=== PATIENT | female | born 1970 | race Caucasian/White ===

== ENCOUNTER 2023-05-23 23:49 | Inpatient (IN) | payer BC, SELFPAY ==
[2023-05-23 18:14] VITALS: BP 133/93
[2023-05-23] MEDS: DILAUDID 0.5 MG IV ×2 (18:52→23:30)
[2023-05-23] MEDS: NSS 1000 IV ×2 (18:52→20:19)
[2023-05-23] MEDS: ZOFRAN 4 MG IV ×2 (18:52→20:16)
[2023-05-23 18:58] LABS: % Basophils 0.3 % (0-2); % Eosinophils 1.4 % (0-6); % Immature Granulocytes 0.4 % (0-0.5); % Lymphocytes 18.3 % (20.5-51.1); % Monocytes 6.5 % (1.7-9.3); % Neutrophils 73.1 % (42.2-75.2); Absolute Eosinophils 0.2 10^3/uL (0-0.7); Absolute Immature Granulocytes 0.1 10^3/uL (0-0.05); Absolute Lymphocytes 2.3 10^3/uL (1.2-3.4); Absolute Monocytes 0.8 10^3/uL (0.1-0.6); Absolute Neutrophils 9.2 10^3/uL (1.4-6.5); Hematocrit 36.2 % (37.0-47.0); Hemoglobin 12.9 g/dL (12.0-16.0); Mean Corp Hgb Conc. 35.6 g/dL (33.0-37.0); Mean Corpuscular Hgb 30.6 pg (27.0-31.0); Nucleated Red Blood Cells % 0 %; Platelet Count 299 10^3/uL (130-400); Red Blood Cell Count 4.21 10^6/uL (4.20-5.40); Red Cell Dist. Width 13.1 % (11.5-14.5); Urine Albumin Trace (Neg - Trace); Urine Bilirubin 1+ (Negative); Urine Character Clear (Clear); Urine Color Yellow; Urine Glucose Negative (Negative); Urine Ketone 1+ (Negative); Urine Leukocyte Trace (Negative); Urine Nitrite Negative (Negative); Urine Occult Blood 3+ (Negative); Urine Urobilinogen 1+ (Neg - 1+); White Blood Cell Count 12.6 10^3/uL (4.8-10.8)
[2023-05-23 19:16] LABS: ALT (SGPT) 16 U/L (0-35); AST (SGOT) 22 U/L (14-36); Albumin 4.4 g/dl (3.5-5.0); Alkaline Phosphatase 63 U/L (38-126); Blood Urea Nitrogen 18 mg/dl (7-17); Calcium 9.7 mg/dl (8.4-10.2); Carbon Dioxide 22 mmol/L (22-30); Chloride 107 mmol/L (98-107); Glucose 87 mg/dl (70-99); Potassium 3.9 mmol/L (3.5-5.1); Sodium 138 mmol/L (135-145); Total Bilirubin 0.6 mg/dl (0.2-1.3); eGFR > 60.00
[2023-05-23 19:21] LABS: Urine Bacteria Few (Negative); Urine Mucus Few
[2023-05-23 19:22] LABS: Urine White Cell 0-2 /HPF (0-5)
--- NOTE | 2023-05-23 19:50 | ED.GENMED ---
Addendum entered and electronically signed by Jimi Reyna DO 05/23/23 23:22:
Update prior to discharge patient with increasing pain, will require admission
Original Note:
History of Present Illness
General
Chief Complaint: Flank Pain
Source: patient, records, spouse and previous radiology exam
Exam Limitations: none
Time Seen by Provider: 05/23/23 18:31
Nursing documentation reviewed up to this point in time: agreed with
Travel History
Have you had any contact with someone who has COVID-19?: No
Do you have any symptoms of coronavirus? Fever > 100 degrees, chills, cough, shortness of breath, sore throat, loss of taste or smell, muscle aches, or headache?: No
History of Present Illness
History of Present Illness:
52-year-old female status post ectopic removal appendectomy 1 prior ureteral stent, few prior kidney stones, presents acute onset of left pelvic pain in the left flank with nausea no fever similar to prior kidney stone took 800 mg of
Motrin did have some urinary frequency possibly some blood, initially thought it could have been a a UTI
Past History
Past History
ED Past Medical History: Psychiatric and Other (Kidney stones)
ED Past Surgical History: Appendectomy, Gynecological and Urological
Social History
Tobacco: Non-smoker
Alcohol: Occasional
Drug: None
Personal:
Living: with family
Employment: Employed
Family History
Family History: Other (Noncontributory)
Review of Systems
Review of Systems
All Other Systems: Not applicable
Constitutional: Denies fever, fatigue or chills
EENT: Reports no symptoms
Respiratory: Reports no symptoms
Cardiac: Reports no symptoms
ABD/GI: Reports abdominal pain and nausea
: Reports urgency and bleeding
Musculoskeletal: Reports no symptoms
Skin: Reports no symptoms
Phy Exam
Physical Exam
Physical Exam:
Physical Exam
General: Nontoxic 52-year-old looks uncomfortable
Neck: No jaundice
Heart: Regular
Lungs: no acute respiratory distress.
Abdomen: Left lower abdominal left flank tenderness
Neuro: alert and oriented. no focal neurological deficits
Skin: no rash
Psychiatric: well kept. interactive and cooperative
Extremities: no edema.
Course
Orders/Labs/Results
Orders:
Orders
05/23/23 18:39
CT Abd/pel Without Iv Or Oral Urgent
Comment:
Reason For Exam: left flakno
0.9% Sodium Chloride 1000 ml [Nss] 1,000 ml IV BOLUS
HYDROmorphone [Dilaudid] 0.5 mg IV NOW STA
Ondansetron Injectable [Zofran] 4 mg IV NOW STA
05/23/23 18:50
Complete Blood Count/With Diff Urgent
Comprehensive Metabolic Panel Urgent
Urinalysis Reflex To Culture Urgent
Date Specimen was Collected: 05/23/23
Time Specimen was Collected: 18:42
Urine Microscopic Reflex Cult Urgent
05/23/23 20:13
0.9% Sodium Chloride 1000 ml [Nss] 1,000 ml IV BOLUS
HYDROmorphone [Dilaudid] 1 mg IV NOW STA
Ondansetron Injectable [Zofran] 4 mg IV NOW STA
05/23/23 21:37
Ketorolac [Toradol] 30 mg IV NOW STA
Oxycodone/Acetaminophen [Percocet 5/325] 1 tablet PO NOW STA
Abnormal Lab Results
05/23/23
18:50
WBC 12.6 H 10^3/uL
(4.8-10.8)
Hct 36.2 L %
(37.0-47.0)
Abs Immat Gran (auto) 0.1 H 10^3/uL
(0-0.05)
Absolute Neuts (auto) 9.2 H 10^3/uL
(1.4-6.5)
Absolute Monos (auto) 0.8 H 10^3/uL
(0.1-0.6)
Lymphocytes % 18.3 L %
(20.5-51.1)
BUN 18 H mg/dl
(7-17)
Urine Ketones 1+ A
(Negative)
Ur Occult Blood Reflex 3+ A
(Negative)
Urine Bilirubin 1+ A
(Negative)
Leukocyte Esterase Rfl Trace A
(Negative)
Urine RBC 7-10 A /HPF
(0-2)
Urine Bacteria (Reflex) Few A
(Negative)
05/23/23 18:50
05/23/23 18:50
Vital Signs
Initial and Last Documented VS:
Initial Vital Signs
Temp Pulse Resp BP Pulse Ox
98.2 F 115 20 133/93 97
05/23/23 18:14 05/23/23 18:14 05/23/23 18:14 05/23/23 18:14 05/23/23 18:14
Last Documented Vital Signs
Temp Pulse Resp BP Pulse Ox
98.2 F 84 18 110/70 98
05/23/23 20:44 05/23/23 20:44 05/23/23 20:44 05/23/23 20:44 05/23/23 20:44
MDM/Problems Addressed
Differential Diagnosis Includes:
Stone ovarian cyst UTI
MDM/Problems Addressed:
Left pelvic pain left leg
Chronic conditions affecting care:
Kidney stones
*Critical Care Note
Total Time (30-74mins, 75-104mins- exclusive of procedures): Not Applicable
Update Note
Update Note:
8:[address] report noted reviewed with patient and spouse, 4 mm distal stone on the left still having some pain will redose on narcotics, see if we get her pain under control consideration for trial of passage inpatient versus outpatient no fever
normal renal function no indication for urgent stenting
9:30 PM, patient feeling better will try some Toradol p.o. meds, appears to be a good candidate for trial of passage
ED Attending Note
-
Portions of this chart may have been created with voice recognition software.� Occasional wrong word or��sound alike� substitutions may have occurred due to the inherent limitations of voice recognition software.
Discharge Plan
Departure
Patient Disposition: Home (Routine Discharge)
Date of Disposition: 05/23/23
Time of Disposition: 21:38
Patient with high blood pressure during this ER visit?: No
Condition: Good
Discharge Problem:
Left ureteral stone
Instructions: Kidney Stones (DC)
Prescriptions:
No Action
lamotrigine [Lamictal] 150 MG tablet
150 mg PO BID
fluvoxamine 50 MG tablet
100 mg PO DAILY
desog-e.estradiol/e.estradiol [Pimtrea (28)] 1 EACH tablet
1 ea PO DAILY
rosuvastatin 5 MG tablet
5 mg PO QPM
semaglutide [Ozempic] 0.25 MG/0.2 ML pen injector
1 mg SQ WEEKLY
propranolol 60 MG capsule,extended release 24 hr
60 mg PO DAILY
hydrocodone-acetaminophen 1 TABLET tablet
1 - 2 tab PO Q4HPRN PRN (Reason: moderate to severe pain) Qty: 20 0RF
Referrals:
Mike Whitten DO [Family Provider] -
Interventions
Interventions:
*Risk Screen - Suicide Last Done: 05/23/23 18:43
*General Assessment Last Done: 05/23/23 18:14
*Neglect/Abuse Screening Last Done: 05/23/23 18:43
ED- Fall Risk Assessment Last Done: 05/23/23 21:06
*ED COVID-19 Vaccine History Last Done: 05/23/23 18:14
RH-Rsvnjw-Jnuljshzbz Assessment Last Done: 05/23/23 18:43
ED-Female Genitourinary Assessment Last Done: 05/23/23 18:43
Discharge Date and Time
Print Language: YI
[2023-05-23] MEDS: DILAUDID 1 MG IV (20:16)
[2023-05-23 20:44] VITALS: BP 110/70
[2023-05-23] MEDS: TORADOL 30 MG IV (21:46)
[2023-05-23] MEDS: PERCOCET 5/325 1 TABLET PO (21:46)
[2023-05-23 23:06] VITALS: BP 129/84
--- NOTE | 2023-05-23 23:29 | HPS.HSE ---
Family Physician
-
Family Physician: Mike Whitten
Chief Complaint
-
Left side abdominal and inguinal pain
History of Present Illness
52-year-old female with history of prior kidney stone, mood disorder chronic back pain, presented to the hospital after she had a sudden onset of the left inguinal areas pain and discomfort with suprapubic pain and pressure, she thought she may have
some UTI, while her was a physician told her you may have another kidney stone, but the pain progressively getting worse to the point was extremely severe unbearable, associated with nausea but no vomiting, denies any dysuria but admits to
increased urinary frequency and suprapubic pain and discomfort, no hematuria, denies any fever or chills or cough or congestion, no chest pain or any vaginal discharge. Workup in the ER concerning for left UVJ junction with mild ureteral dilation.
Given fluids, pain and nausea medication
Medical History
Past Medical History
Past Medical History: Reports Other
Additional Past Medical History:
Past medical history reviewed:
Chronic back pain status post back surgery
History of the kidney stones status post cystoscopy and stent placed
Dyslipidemia
Mood disorder
Surgical history:
Back surgery
Cystoscopy and stent placement
Social history: No smoking, alcohol or drug use.
Family history positive for kidney stone in his father as well as chronic back issues
Past Surgical History: Reports Other
Social History
Unable to obtain full social history at this time due to: Other
Family History
Family History: Other
Allergies / Home Medications
Allergies reflects when Allergies were last updated in [facility].
Home Medications with original date entered in [facility]
Allergy/Medication List:
Allergies
Allergy/AdvReac Type Severity Reaction Status Date / Time
Penicillins Allergy Unknown Swelling Verified 05/23/23 18:18
tramadol Allergy Unknown NAUSEA Verified 05/23/23 18:18
tramadol HCl [From Ultram] Allergy Unknown Nausea Verified 05/23/23 18:18
relafen Allergy Hives Uncoded 05/23/23 18:18
Home Medications
fluvoxamine 50 mg tablet 100 mg PO DAILY Depression 03/29/15
lamotrigine 150 mg tablet (Lamictal) 150 mg PO BID Seizures 03/29/15
desogestrel-e.estradiol 0.15 mg-0.02 mg(21)/e.estrad 0.01 mg(5) tablet (Pimtrea (28)) 1 ea PO DAILY Hormonal agent 09/04/18
rosuvastatin 5 mg tablet 5 mg PO QPM Hormonal agent 09/04/18
semaglutide 0.25 mg or 0.5 mg (2 mg/1.5 mL) subcutaneous pen injector (Ozempic) 1 mg SQ WEEKLY Diabetes 09/04/18
Review of Systems
-
A 12 point ROS was completed and negative except as noted: Yes
Physical Exam
Vital Signs
Vital Signs
Temp Pulse Resp BP Pulse Ox
98.2 F 76 17 129/84 98
05/23/23 20:44 05/23/23 23:06 05/23/23 23:06 05/23/23 23:06 05/23/23 23:06
Physical exam:
General: Awake, alert and oriented x3, not in distress and holds appropriate conversation.
HEENT: No active discharge, ecchymosis or bruising, moist lips, tongue and mucous membrane.
Eyes: No discharge or red conjunctiva, no nystagmus, pupils are reactive and equal
Neck:Supple, no JVD no bruit no goiter.
Respiratory: Normal AP contour and diameter, normal chest wall movement, normal respiratory effort, no respiratory distress,
Lungs: Good air entry bilaterally, no wheezing or rhonchi, no rales or crackles
Heart: S1, S2 regular, normal rate, no added sound.
Genitourinary Left-sided abdominal and flank pain and tenderness,
Gastrointestinal: Positive bowel sounds, soft, left-sided abdominal tenderness with no guarding or rigidity or organomegaly
Musculoskeletal: , no chest wall abnormality or tenderness. All joints and extremities have good range of motion, no muscle tenderness or any joint swelling or tenderness.
Extremities: No pitting edema, good peripheral pulses, good range of motion
Skin: Warm and dry, no ulceration, normal color.
Neurological: Awake, alert and oriented x3, no facial droop, moves extremities freely, speech clear and comprehensive
Psychiatric: Normal mood, normal thought and judgment, normal affect,
Physical Exam
General: Other
Laboratory Results
-
05/23/23 18:50
05/23/23 18:50
Laboratory Results
Total Bilirubin 0.6 mg/dl (0.2-1.3) 05/23/23 18:50
AST 22 U/L (14-36) 05/23/23 18:50
ALT 16 U/L (0-35) 05/23/23 18:50
Alkaline Phosphatase 63 U/L (38-126) 05/23/23 18:50
CT abdominal and pelvis:
1. 3.8 mm PARTIALLY OBSTRUCTING CALCULUS at the LEFT URETEROVESICAL JUNCTION causing mild distal left hydroureter. No CT evidence for left hydronephrosis.
2. No CT evidence for intrarenal calculi.
3. Mild diverticulosis in the sigmoid colon.
4. Severe discogenic degenerative disease at L3/L4, L4/L5, and L5/S1.
Data Reviewed
-
CT Scan: Image Personally Visualized and interpreted and Discussed with Patient
Lab Data: Labs Reviewed by me and Discussed with Patient
Old Records: Reviewed
Impression/Plan
-
IMPRESSION:
52-year-old female with prior history of ureteric stone, presented to the hospital with left-sided abdominal inguinal area pains with a workup showed left UVJ stone with mild hydroureter.
Renal colic
Left UVJ stone with hydroureter
Hydroureter
Urinary tract infection likely triggered by ureteric stone
Mood disorder
Dyslipidemia
PLAN:
N.p.o. except medication for now
IV fluid with normal saline 125 mill per hour
Start Flomax and first dose for now, see if she passes stone
Urology consult and defer further workup to urology
Pain and nausea medication with Dilaudid, Toradol and Zofran as needed
Continue lamotrigine as she takes for mood, flu vaccine main
Hold off semaglutide that she takes for weight management
Recheck lab
All discussed with the patient in detail expressed understanding
CODE STATUS full code
DVT prophylaxis SCD
[2023-05-23 23:33] VITALS: BMI 28.9
[2023-05-24] MEDS: FLOMAX 0.400000000000000022 MG PO ×2 (01:40→08:06)
[2023-05-24] MEDS: ZOFRAN 4 MG IV (01:40)
[2023-05-24 01:41] VITALS: BP 128/84; BMI 29.8
[2023-05-24] MEDS: NSS 1000 IV ×2 (01:41→09:25)
[2023-05-24] MEDS: ROCEPHIN 1000 MG IV (02:07)
[2023-05-24] MEDS: TYLENOL 650 MG PO (02:07)
[2023-05-24] MEDS: STERILE WATER FOR INJECTION 10 ML IV (02:07)
--- NOTE | 2023-05-24 03:01 | PTCARENOTE ---
Pt admitted to [facility] from ED, ambulated from stretcher to bed without difficulty. VSS. Medicated with Tylenol for 3/10 pain with effective result. Pt nauseous on arrival to floor, refer to [facility] for Zofran administration. Admission questions completed
as documented. Provided pt with strainer for urine, provided education and pt verbalizes understanding of use. Pt's belongings at bedside, oriented to room, call saavedra within reach.
[2023-05-24] MEDS: TORADOL 10 MG IV (05:30)
[2023-05-24] MEDS: DILAUDID 0.5 MG IV (06:05)
[2023-05-24 07:00] VITALS: BP 100/68
[2023-05-24 07:54] LABS: Hematocrit 30.6 % (37.0-47.0); Hemoglobin 10.6 g/dL (12.0-16.0); Mean Corp Hgb Conc. 34.6 g/dL (33.0-37.0); Mean Corpuscular Hgb 30.8 pg (27.0-31.0); Mean Platelet Volume 9.6 fL (7.4-10.4); Platelet Count 208 10^3/uL (130-400); Red Blood Cell Count 3.44 10^6/uL (4.20-5.40); Red Cell Dist. Width 13.3 % (11.5-14.5); White Blood Cell Count 7.5 10^3/uL (4.8-10.8)
[2023-05-24] MEDS: LAMICTAL 150 MG PO (08:06)
[2023-05-24] MEDS: LUVOX 100 MG PO (08:07)
[2023-05-24 08:21] LABS: Blood Urea Nitrogen 13 mg/dl (7-17); Calcium 7.9 mg/dl (8.4-10.2); Chloride 113 mmol/L (98-107); Estimated Creatinine Clearance 69 ml/min; Glucose 82 mg/dl (70-99); Potassium 3.9 mmol/L (3.5-5.1); Sodium 135 mmol/L (135-145); eGFR > 60.00
[2023-05-24 08:39] LABS: Carbon Dioxide 19 mmol/L (22-30)
--- NOTE | 2023-05-24 09:03 | W.DS.TRANS ---
DC Summary - Climbing Guide
-
Discharge Instructions:
Discharge Diagnosis/Procedures Ureteral colic
Passed stone
Mild hydronephrosis
Diet Low Fat
Additional Diets Stay well-hydrated
Activity As tolerated
Driving Restrictions As prior to admission
Instructions:
Stand-Alone Forms:
Changes to Home Medications: No
Discharge Medications:
DC Medications w/original date entered in [facility]
fluvoxamine 50 mg tablet 100 mg PO DAILY Depression 03/29/15
lamotrigine 150 mg tablet (Lamictal) 150 mg PO BID Seizures 03/29/15
desogestrel-e.estradiol 0.15 mg-0.02 mg(21)/e.estrad 0.01 mg(5) tablet (Pimtrea (28)) 1 ea PO DAILY Hormonal agent 09/04/18
rosuvastatin 5 mg tablet 5 mg PO QPM Hormonal agent 09/04/18
semaglutide 0.25 mg or 0.5 mg (2 mg/1.5 mL) subcutaneous pen injector (Ozempic) 1 mg SQ WEEKLY Diabetes 09/04/18
Home Medication Changes
Pending Results: No
Total time spent discharging patient (in min): 34
--- NOTE | 2023-05-24 11:15 | W.PN.URO.CBU ---
Today's Communication / Plan
-
Will begin potassium citrate 15 meq po BID
Cleared for discharge from standpoint
Assessment / Plan
-
Passed 4 mm left UVJ stone
No recurrent renal colic
Resolving dysuria
Diagnosis
-
Date of Service: May 24, 2023
-
Patient Diagnosis:
Left renal colic
4 mm left UVJ stone
Subjective
-
Passed and recovered stone
Feels well
Objective
-
Vital Signs
Temp Pulse Resp BP Pulse Ox
98.4 F 77 18 100/68 98
05/24/23 07:00 05/24/23 07:00 05/24/23 07:00 05/24/23 07:00 05/24/23 08:44
Laboratory Results
05/24/23 07:07
05/24/23 07:07
Review of Systems
-
Constitutional: Fatigue
Respiratory: No Symptoms
Cardiac: No Symptoms
Abdomen/GI: No Symptoms
: No Symptoms
Neurological: No Symptoms
Physical Exam
-
General - well developed, well nourished, no acute distress
Abdomen - soft, non-tender, positive bowel sounds, no CVAT
--- NOTE | 2023-05-24 11:26 | W.DCSUMMARY ---
Discharge Summary
Discharge Data
Date of Admission: 05/23/23
Date of Discharge: 05/24/23
-
Pending Results: No
Hospital Course
52-year-old female with history of prior kidney stone, mood disorder chronic back pain, presented to the hospital after she had a sudden onset of the left inguinal areas pain and discomfort with suprapubic pain and pressure, she thought she may have
some UTI, while her was a physician told her you may have another kidney stone, but the pain progressively getting worse to the point was extremely severe unbearable, associated with nausea but no vomiting, denies any dysuria but admits to
increased urinary frequency and suprapubic pain and discomfort, no hematuria, denies any fever or chills or cough or congestion, no chest pain or any vaginal discharge. Workup in the ER concerning for left UVJ junction with mild ureteral dilation.
Given fluids, pain and nausea medication
She does have a history of calcium oxalate stones that she has had on at least 2 separate occasions in the past. She does not follow a modified diet.
Following morning patient was given a dosage of tamsulosin and shortly thereafter passed neurolytic has stone that was collected and looks to be the culprit given the size description on CT imaging
She has had symptomatic improvement and she is voiding well show was seen by urology who concurred with clearance for discharge but did recommend the addition of potassium citrate given her calcium oxalate history and a prescription for euro quit 5
was called into her local pharmacy
Discharge Plan
-
Patient Disposition: Home (Routine Discharge)
Discharge Diagnosis/Procedures: Ureteral colic
Passed stone
Mild hydronephrosis
Diet: Low Fat
Additional Diets: Stay well-hydrated
Activity: As tolerated
Driving Restrictions: As prior to admission
Referrals:
Mike Whitten, DO [Family Provider] - in less than 1 week
Prescriptions:
New
potassium citrate [Urocit-K 5] 5 mEq (540 mg) tablet extended release
5 meq PO DAILY Qty: 30 0RF
Continued
lamotrigine [Lamictal] 150 MG tablet
150 mg PO BID
fluvoxamine 50 MG tablet
100 mg PO DAILY
desog-e.estradiol/e.estradiol [Pimtrea (28)] 1 EACH tablet
1 ea PO DAILY
rosuvastatin 5 MG tablet
5 mg PO QPM
Ozempic 0.25 MG/0.2 ML pen injector
1 mg SQ WEEKLY
Discharge Orders:
Discharge Patient (As Directed); Ordered 05/24/23
Ordered By: Jam Chapin
Discharge Date and Time
Print Language: HUNGARIAN
== END 2023-05-24 11:34 | disposition home or self-care (01) | DRG 694 ==
LOC: 3 WEST ACU 23:49
PROVIDERS: ADMITTING PHYSICIAN Internal Medicine; ATTENDING PHYSICIAN Internal Medicine; CONSULT PHYSICIAN Specialist; EMERGENCY PHYSICIAN Emergency Medicine; FAMILY PHYSICIAN Family Medicine
DX: N20.1 Calculus of ureter (principal); N39.0 Urinary tract infection, site not specified; F39 Unspecified mood [affective] disorder; G89.29 Other chronic pain; R39.15 Urgency of urination; R35.0 Frequency of micturition; K57.30 Diverticulosis of large intestine without perforation or abscess without bleeding; E78.5 Hyperlipidemia, unspecified; Z88.5 Allergy status to narcotic agent; Z88.0 Allergy status to penicillin; Z88.8 Allergy status to other drugs, medicaments and biological substances; Z79.85 Long-term (current) use of injectable non-insulin antidiabetic drugs; Z87.442 Personal history of urinary calculi
CPT/HCPCS: 74176; 80048; 80053; 81003; 81015; 85025; 85027; 96361; 96374; 96375; 96376; 99285

== ENCOUNTER → 2023-05-26 09:20 | Outpatient (REF) | payer BC, SELFPAY | LOC: CLAB 09:20 | PROVIDERS: ATTENDING PHYSICIAN Family Medicine | DX: N20.0 Calculus of kidney (principal); R39.9 Unspecified symptoms and signs involving the genitourinary system | CPT/HCPCS: 87086 ==

== ENCOUNTER → 2023-10-24 08:01 | Outpatient (REF) | payer BC, SELFPAY | LOC: WDC 08:01 | PROVIDERS: ATTENDING PHYSICIAN Family Medicine | DX: Z12.31 Encounter for screening mammogram for malignant neoplasm of breast (principal) | CPT/HCPCS: 77063; 77067 ==

== ENCOUNTER → 2023-10-30 09:31 | Outpatient (REF) | payer BC, SELFPAY | LOC: WDC 09:31 | PROVIDERS: ATTENDING PHYSICIAN Family Medicine | DX: R92.8 Other abnormal and inconclusive findings on diagnostic imaging of breast (principal) | CPT/HCPCS: 76642 ==

== ENCOUNTER → 2024-04-15 10:49 | Outpatient (REF) | payer BC, SELFPAY ==
[2024-04-15 15:56] LABS: % Basophils 0.5 % (0-2); % Eosinophils 2.7 % (0-6); % Immature Granulocytes 0.1 % (0-0.5); % Lymphocytes 20.7 % (20.5-51.1); % Monocytes 5.8 % (1.7-9.3); % Neutrophils 70.2 % (42.2-75.2); Absolute Eosinophils 0.2 10^3/uL (0-0.7); Absolute Lymphocytes 1.8 10^3/uL (1.2-3.4); Absolute Monocytes 0.5 10^3/uL (0.1-0.6); Absolute Neutrophils 6.1 10^3/uL (1.4-6.5); Hematocrit 43.4 % (37.0-47.0); Hemoglobin 14.7 g/dL (12.0-16.0); Mean Corp Hgb Conc. 33.9 g/dL (33.0-37.0); Mean Corpuscular Hgb 29.5 pg (27.0-31.0); Mean Corpuscular Volume 87.1 fL (81.0-99.0); Mean Platelet Volume 9.8 fL (7.4-10.4); Nucleated Red Blood Cells % 0 %; Platelet Count 322 10^3/uL (130-400); Red Blood Cell Count 4.98 10^6/uL (4.20-5.40); White Blood Cell Count 8.6 10^3/uL (4.8-10.8)
[2024-04-15 16:05] LABS: ALT (SGPT) 20 U/L (0-35); AST (SGOT) 25 U/L (14-36); Albumin 4.8 g/dl (3.5-5.0); Alkaline Phosphatase 76 U/L (38-126); Blood Urea Nitrogen 15 mg/dl (7-17); Calcium 9.6 mg/dl (8.4-10.2); Carbon Dioxide 23 mmol/L (22-30); Chloride 103 mmol/L (98-107); Glucose 87 mg/dl (70-99); Potassium 4.7 mmol/L (3.5-5.1); Sodium 136 mmol/L (135-145); Total Cholesterol 195 mg/dl (50-199); Total Protein 7.4 g/dl (6.3-8.2); Triglyceride 78 mg/dl (10-149); Very Low Density Lipoprotein 15 mg/dl (0-30); eGFR > 60.00
[2024-04-15 16:08] LABS: Erythrocyte Sed Rate 2 mm/hour (0-20)
[2024-04-15 16:19] LABS: HDL Cholesterol 109 mg/dl; LDL Cholesterol, Calculated 71 mg/dl
[2024-04-15 16:23] LABS: Vitamin D, 25-OH*** 41.2 ng/mL (30-80)
[2024-04-15 16:37] LABS: TSH 1.14 uIU/ml (0.47-4.68)
[2024-04-18 01:36] LABS: ANA, IgG Reflex to HEp-2 None Detected (None Detected)
[2024-04-18 07:35] LABS: CCP Antibody IgG/IgA 3 Units (0-19)
== END ==
LOC: HWLAB 10:49
PROVIDERS: ATTENDING PHYSICIAN Family Medicine
DX: Z00.00 Encounter for general adult medical examination without abnormal findings (principal); E78.5 Hyperlipidemia, unspecified; M79.642 Pain in left hand
CPT/HCPCS: 36415; 80053; 80061; 82306; 84443; 85025; 85652; 86038; 86140; 86200; 86430

== ENCOUNTER → 2024-05-10 15:49 | Outpatient (REF) | payer BC, SELFPAY | LOC: MRI 3T 15:49 | PROVIDERS: ATTENDING PHYSICIAN Family Medicine | DX: M20.012 Mallet finger of left finger(s) (principal); M79.645 Pain in left finger(s) | CPT/HCPCS: 73221 ==

== ENCOUNTER → 2024-06-13 13:07 | Outpatient (REF) | payer BC, SELFPAY ==
[2024-06-18 04:10] LABS: HPV, High Risk Not Detected; HPV, High Risk Source Cervical
== END ==
LOC: CPAP 13:07
PROVIDERS: ATTENDING PHYSICIAN Obstetrics & Gynecology
DX: Z11.51 Encounter for screening for human papillomavirus (HPV) (principal); Z01.419 Encounter for gynecological examination (general) (routine) without abnormal findings
CPT/HCPCS: 87624

== ENCOUNTER → 2024-10-07 10:12 | Outpatient (REF) | payer BC, SELFPAY | LOC: HWRAD 10:12 | PROVIDERS: ATTENDING PHYSICIAN Obstetrics & Gynecology; FAMILY PHYSICIAN Family Medicine | DX: N94.6 Dysmenorrhea, unspecified (principal) | CPT/HCPCS: 76830; 76856 ==